=== PATIENT | female | born 1980 | race Caucasian/White ===

== ENCOUNTER 2023-07-16 02:41 | Emergency (ER) | payer OTHER ==
[2023-07-16] MEDS ORDERED: predniSONE 20 MG TAB ONE (03:50)
== END 2023-07-16 04:00 | disposition home or self-care (01) ==
LOC: BURERS 02:41
DX: J06.9 Acute upper respiratory infection, unspecified (principal); B34.9 Viral infection, unspecified; I10 Essential (primary) hypertension; F17.200 Nicotine dependence, unspecified, uncomplicated
CPT/HCPCS: 87070; 87077; 87205; 87804; 87807; 99283; J7512